=== PATIENT | female | born 1940 | race Caucasian/White ===

== ENCOUNTER → 2017-01-03 | Outpatient (CLI) | payer OTHER | LOC: BHFA 09:30 | PROVIDERS: ATTEND Internal Medicine Cardiovascular Disease | DX: E78.5 Hyperlipidemia, unspecified (principal); J44.9 Chronic obstructive pulmonary disease, unspecified ==

== ENCOUNTER → 2017-02-09 | Outpatient (CLI) | payer OTHER ==
[~2017-02-09] MED LIST: IOPAMIDOL (ISOVUE-300) 100 ML BTL IV ONE
== END ==
LOC: FIMAGING 10:31
PROVIDERS: ATTEND Family Medicine
DX: R31.9 Hematuria, unspecified (principal); R91.1 Solitary pulmonary nodule; J47.9 Bronchiectasis, uncomplicated
CPT/HCPCS: 74178; Q9967

== ENCOUNTER → 2017-02-12 | Outpatient (CLI) | payer OTHER | LOC: BMCIMAGING 10:04 | PROVIDERS: ATTEND Family Medicine | DX: M17.11 Unilateral primary osteoarthritis, right knee (principal); M25.461 Effusion, right knee ==

== ENCOUNTER → 2017-06-21 | Outpatient (CLI) | payer OTHER | LOC: FIMAGING 14:58 | PROVIDERS: ATTEND Family Medicine | DX: R91.8 Other nonspecific abnormal finding of lung field (principal) ==

== ENCOUNTER → 2017-07-24 | Outpatient (CLI) | payer OTHER | LOC: FIMAGING 08:48 | PROVIDERS: ATTEND Family Medicine | DX: Z12.31 Encounter for screening mammogram for malignant neoplasm of breast (principal); Z85.3 Personal history of malignant neoplasm of breast; Z80.3 Family history of malignant neoplasm of breast | CPT/HCPCS: G0202 ==

== ENCOUNTER 2017-08-28 09:49 | Emergency (ER) | payer OTHER ==
[2017-08-28 09:59] VITALS: O2SAT 94
[2017-08-28 10:21] LABS: PLATELET COUNT 186 10^3/uL (150-400)
[2017-08-28 10:48] LABS: INR 0.97 (0.83-1.16); PROTIME(PATIENT) 12.8 SEC (12.0-15.0)
[2017-08-28 10:56] VITALS: RESP 18
[2017-08-28] MEDS ORDERED: IOPAMIDOL (ISOVUE 370) 100 ML BTL IV ONE (10:56)
--- NOTE | 2017-08-28 10:56 | EDPHY ---
H & P Time Seen by Provider: 08/28/17 10:17 HPI/ROS: CHIEF COMPLAINT: Hemoptysis HISTORY OF PRESENT ILLNESS: 77-year-old female presents with hemoptysis. Onset of hemoptysis yesterday evening, she coughed up a small amount of bright red blood x4 last evening. She slept well last night. When she awoke this morning, she had a few episodes of hemoptysis. She has a small amount of blood on the tissue each time, no clots. No recent cough or fever. She is not short of breath. No prior history of hemoptysis. 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 Smoking Status: Former smoker Physical Exam: General Appearance: Alert, pleasant Eyes: Pupils equal and round, no conjunctival pallor or injection ENT, Mouth: Mucous membranes moist Neck: Normal inspection Respiratory: Lungs are clear to auscultation Cardiovascular: Regular rate and rhythm, no murmur Gastrointestinal: Abdomen is soft and nontender Neurological: A&O, nonfocal, normal gait Skin: Warm and dry, no rash Extremities: Nontender, no pedal edema Psychiatric: Mood and affect normal Constitutional: Initial Vital Signs Temperature (C) 36.5 C 08/28/17 09:56 Heart Rate 79 08/28/17 09:56 Respiratory Rate 20 08/28/17 09:56 Blood Pressure 117/77 08/28/17 09:56 O2 Sat (%) 94 08/28/17 09:56 O2 Delivery Mode Room Air Allergies/Adverse Reactions: Penicillins Allergy (Unknown, Verified 08/28/17 09:54) Home Medications: Medication Instructions Recorded Synthroid 01/08/10 Aspirin 81mg (*) 07/03/16 Calcium 09/22/16 Coq10 09/22/16 Garlic Extract 09/22/16 Herbals/Supplements -Info Only 09/22/16 Magnesium 09/22/16 Nexium 11/06/17 Medical Decision Making - Diagnostics EKG Interpretation: Differential diagnosis includes though it is not limited to pneumonia, pneumothorax, pulmonary embolism, aortic dissection, pericarditis, acute coronary syndrome. Imaging Results: Imaging Impressions Chest X-Ray 08/28/17 10:16 Impression: 1. Mild bronchitis. No pneumonia or mass. 2. Benign linear scar peripheral right mid lung is unchanged since at least 2011. Chest/Thorax CTA 08/28/17 10:52 Impression: 1. No pulmonary embolism. 2. Chronic interstitial lung disease and bronchiectasis, with centrilobular nodules, in the right middle lobe, left lingula, and right lower lobe. These processes have been evolving since 2014. Primary differential is DAYANA given distribution. 3. No new areas of parenchymal involvement. Findings and recommendations discussed with Dr. Jayna Myers at 1220 hours on August 28, 2017. Final report concurs with initial preliminary interpretation. ED Course/Re-evaluation: This patient presents with mild hemoptysis. Chest x-ray is unremarkable. CT pulmonary angiogram ordered because of hemoptysis and underlying lung disease, prior pulmonary nodules and history of breast cancer. CT scan results discussed with the patient. The most likely etiology for hemoptysis is underlying bronchiectasis. She has seen Dr. Kal Moncada in the office before and will follow up with him for consideration of bronchoscopy. While she was in the emergency department, she had a couple episodes of hemoptysis, consisting of a small amount of blood on tissue. Feel that she is safe and stable for discharge home. She will return to the emergency department if the hemoptysis worsens. Differential Diagnosis: Differential diagnosis includes though it is not limited to pneumonia, pneumothorax, pulmonary embolism, aortic dissection, pericarditis, acute coronary syndrome. - Data Points Laboratory Results: Laboratory Results 08/28/17 10:00 08/28/17 10:00 08/28/17 08/28/17 08/28/17 10:00 10:00 10:00 WBC RBC Hgb Hct MCV MCH MCHC RDW Plt Count MPV Neut % (Auto) Lymph % (Auto) [place] % (Auto) Eos % (Auto) Baso % (Auto) Nucleat RBC Rel Count Absolute Neuts (auto) Absolute Lymphs (auto) Absolute Monos (auto) Absolute Eos (auto) Absolute Basos (auto) Absolute Nucleated RBC Immature Gran % Immature Gran # PT 12.8 SEC SEC (12.0-15.0) INR 0.97 (0.83-1.16) APTT 32.3 SEC SEC (23.0-38.0) D-Dimer 0.51 ug/mLFEU H ug/mLFEU (0.00-0.50) Sodium 140 mEq/L mEq/L (134-144) Potassium 4.3 mEq/L mEq/L (3.5-5.2) Chloride 105 mEq/L mEq/L (97-110) Carbon Dioxide 25 mEq/l mEq/l (22-31) Anion Gap 10 mEq/L mEq/L (8-16) BUN 19 mg/dL mg/dL (7-23) Creatinine 1.0 mg/dL mg/dL (0.6-1.0) Estimated GFR 54 Glucose 98 mg/dL mg/dL (70-100) Calcium 10.4 mg/dL mg/dL (8.5-10.4) NT-Pro-B Natriuret Pep 52 pg/mL pg/mL (0-450) 08/28/17 10:00 WBC 5.32 10^3/uL 10^3/uL (3.80-9.50) RBC 5.30 10^6/uL 10^6/uL (4.18-5.33) Hgb 16.2 g/dL g/dL (12.6-16.3) Hct 47.0 % % (38.0-47.0) MCV 88.7 fL fL (81.5-99.8) MCH 30.6 pg pg (27.9-34.1) MCHC 34.5 g/dL g/dL (32.4-36.7) RDW 13.6 % % (11.5-15.2) Plt Count 186 10^3/uL 10^3/uL (150-400) MPV 9.8 fL fL (8.7-11.7) Neut % (Auto) 61.1 % % (39.3-74.2) Lymph % (Auto) 24.1 % % (15.0-45.0) [place] % (Auto) 10.3 % % (4.5-13.0) Eos % (Auto) 3.4 % % (0.6-7.6) Baso % (Auto) 0.9 % % (0.3-1.7) Nucleat RBC Rel Count 0.0 % % (0.0-0.2) Absolute Neuts (auto) 3.25 10^3/uL 10^3/uL (1.70-6.50) Absolute Lymphs (auto) 1.28 10^3/uL 10^3/uL (1.00-3.00) Absolute Monos (auto) 0.55 10^3/uL 10^3/uL (0.30-0.80) Absolute Eos (auto) 0.18 10^3/uL 10^3/uL (0.03-0.40) Absolute Basos (auto) 0.05 10^3/uL 10^3/uL (0.02-0.10) Absolute Nucleated RBC 0.00 10^3/uL 10^3/uL (0-0.01) Immature Gran % 0.2 % % (0.0-1.1) Immature Gran # 0.01 10^3/uL 10^3/uL (0.00-0.10) PT INR APTT D-Dimer Sodium Potassium Chloride Carbon Dioxide Anion Gap BUN Creatinine Estimated GFR Glucose Calcium NT-Pro-B Natriuret Pep Departure - Departure Disposition: Home, Routine, Self-Care Clinical Impression: Hemoptysis Bronchiectasis Qualifiers: Bronchiectasis type: uncomplicated Qualified Code(s): J47.9 - Bronchiectasis, uncomplicated Condition: Good Instructions: Hemoptysis (ED), Bronchiectasis (ED) Additional Instructions: Return for increasing bleeding, any concerns. Referrals: Jyoti Sales MD [Primary Care Provider] - As per Instructions Kal Moncada MD [Medical Doctor] - As per Instructions (Call to make an appointment with Dr. Moncada.)
--- NOTE | 2017-08-28 11:03 | CPEKG ---
Heart Rate: 67 RR Interval: 896 P-R Interval: 176 QRSD Interval: 88 QT Interval: 408 QTC Interval: 431 P [place]: 56 QRS [place]: -12 T Wave [place]: 11 EKG Severity - BORDERLINE ECG - EKG Impression: SINUS RHYTHM EKG Impression: PROBABLE LEFT ATRIAL ABNORMALITY Electronically Signed By: Jayna Benoit 28-Aug-2017 14:57:44
[2017-08-28 12:36] VITALS: BP 122/76; PULSE 70; TEMP 98.1
== END 2017-08-28 12:36 | disposition home or self-care (01) ==
DX: J47.9 Bronchiectasis, uncomplicated (principal); Z79.82 Long term (current) use of aspirin; Z85.3 Personal history of malignant neoplasm of breast; Z87.891 Personal history of nicotine dependence
CPT/HCPCS: 71020; 71275; 93005; 99285; Q9967

== ENCOUNTER 2017-11-26 16:30 | Observation (INO) | payer OTHER ==
--- NOTE | 2017-11-26 16:45 | CPEKG ---
Heart Rate: 70 RR Interval: 857 P-R Interval: 184 QRSD Interval: 94 QT Interval: 408 QTC Interval: 441 P [place]: 62 QRS [place]: -15 T Wave [place]: 40 EKG Severity - BORDERLINE ECG - EKG Impression: SINUS RHYTHM EKG Impression: PROBABLE LEFT ATRIAL ABNORMALITY EKG Impression: BORDERLINE LEFT AXIS DEVIATION Electronically Signed By: Maximiliano Vu 26-Nov-2017 20:50:16
[2017-11-26 17:20] LABS: PLATELET COUNT 170 10^3/uL (150-400)
--- NOTE | 2017-11-26 17:23 | EDPHY ---
H & P Stated Complaint: chest discomfort intermittent since yesterday Time Seen by Provider: 11/26/17 16:57 HPI/ROS: Chief Complaint: Chest pain HPI: 77-year-old woman with a history of hyperlipidemia presenting with intermittent chest pain since yesterday. It comes about every couple hours. Lasts about 10 15 min. Is in her central chest. Is not radiating. At worst is about a 3/10. No associated shortness of breath. No fevers or chills. No cough. No nausea or vomiting. There are no aggravating or alleviating factors. She has had a cardiac workup including stress test and catheterization in the past. No history of similar episodes. ROS: 10 point Review of Systems is negative except as noted in the HPI. PMH: Hyperlipidemia Social History: No smoking, no alcohol, no recreational drug use Family History: Father has a history of coronary disease Physical Exam: Gen: Awake, Alert, No Distress HEENT: Nose: no rhinorrhea Eyes: PERRLA, EOMI Mouth: Moist mucosa Neck: Supple, no JVD Chest: nontender, lungs clear to auscultation Heart: S1, S2 normal, no murmur Abd: Soft, non-tender, no guarding Back: no CVA tenderness, no midline tenderness Ext: no edema, non-tender Skin: no rash Neuro: CN II-XII intact, Sensation grossly intact, Strength 5/5 in bilateral upper and lower extremities - Personal History Current Tetanus/Diphtheria Vaccine: Yes - Medical/Surgical History Hx Asthma: No Hx Chronic Respiratory Disease: No Hx Diabetes: No Hx Cardiac Disease: No Hx Renal Disease: No Hx Cirrhosis: No Hx Alcoholism: No Hx HIV/AIDS: No Hx Splenectomy or Spleen Trauma: No Other PMH: high cholesterol/breast cancer - Social History Smoking Status: Former smoker Constitutional: Initial Vital Signs Temperature (C) 36.8 C 11/26/17 16:33 Heart Rate 70 11/26/17 16:33 Respiratory Rate 17 11/26/17 16:33 Blood Pressure 162/77 H 11/26/17 16:33 O2 Sat (%) 94 11/26/17 16:33 O2 Delivery Mode Room Air Allergies/Adverse Reactions: Penicillins Allergy (Unknown, Verified 11/26/17 16:32) Home Medications: Medication Instructions Recorded Synthroid 01/08/10 Aspirin 81mg (*) 07/03/16 Calcium 09/22/16 Coq10 09/22/16 Garlic Extract 09/22/16 Herbals/Supplements -Info Only 09/22/16 Magnesium 09/22/16 Nexium 08/28/17 Zetia 11/26/17 Medical Decision Making - Diagnostics EKG Interpretation: ECG time 1642 sinus rhythm with a rate of 70, borderline left axis deviation, there is ST depressions in V3 through V6 as well as leads to 3 and AVF. These are new changes from her prior ECGs in the system. ED Course/Re-evaluation: 77-year-old with history of hyperlipidemia family history for coronary disease presenting with intermittent chest pain since yesterday. Troponin is negative. She does have ST depressions in the inferior and lateral leads. I have discussed with Dr. Schultz, hospitalist. He will admit to his service for further care. - Data Points Laboratory Results: Laboratory Results 11/26/17 16:45 11/26/17 16:45 11/26/17 11/26/17 16:45 16:45 WBC 6.88 10^3/uL 10^3/uL (3.80-9.50) RBC 4.97 10^6/uL 10^6/uL (4.18-5.33) Hgb 15.1 g/dL g/dL (12.6-16.3) Hct 44.2 % % (38.0-47.0) MCV 88.9 fL fL (81.5-99.8) MCH 30.4 pg pg (27.9-34.1) MCHC 34.2 g/dL g/dL (32.4-36.7) RDW 13.8 % % (11.5-15.2) Plt Count 170 10^3/uL 10^3/uL (150-400) MPV 9.9 fL fL (8.7-11.7) Neut % (Auto) 66.9 % % (39.3-74.2) Lymph % (Auto) 20.1 % % (15.0-45.0) [place] % (Auto) 7.7 % % (4.5-13.0) Eos % (Auto) 4.2 % % (0.6-7.6) Baso % (Auto) 1.0 % % (0.3-1.7) Nucleat RBC Rel Count 0.0 % % (0.0-0.2) Absolute Neuts (auto) 4.60 10^3/uL 10^3/uL (1.70-6.50) Absolute Lymphs (auto) 1.38 10^3/uL 10^3/uL (1.00-3.00) Absolute Monos (auto) 0.53 10^3/uL 10^3/uL (0.30-0.80) Absolute Eos (auto) 0.29 10^3/uL 10^3/uL (0.03-0.40) Absolute Basos (auto) 0.07 10^3/uL 10^3/uL (0.02-0.10) Absolute Nucleated RBC 0.00 10^3/uL 10^3/uL (0-0.01) Immature Gran % 0.1 % % (0.0-1.1) Immature Gran # 0.01 10^3/uL 10^3/uL (0.00-0.10) Sodium 142 mEq/L mEq/L (135-145) Potassium 3.8 mEq/L mEq/L (3.5-5.2) Chloride 103 mEq/L mEq/L (97-110) Carbon Dioxide 27 mEq/l mEq/l (22-31) Anion Gap 12 mEq/L mEq/L (8-16) BUN 24 mg/dL H mg/dL (7-23) Creatinine 1.0 mg/dL mg/dL (0.6-1.0) Estimated GFR 54 Glucose 99 mg/dL mg/dL (70-100) Calcium 10.5 mg/dL H mg/dL (8.5-10.4) Troponin I < 0.012 ng/mL ng/mL (0.000-0.034) Departure - Departure Disposition: [facility] Inpatient Acute Clinical Impression: Chest pain Condition: Fair Referrals: Jyoti Sales MD [Primary Care Provider] - As per Instructions
[2017-11-26] MEDS ORDERED: ASPIRIN 325 MG TAB PO ONE (18:35)
[2017-11-26] MEDS ORDERED: ONDANSETRON 4 MG/2 ML VIAL IVP PRN (20:39)
[2017-11-26] MEDS ORDERED: ONDANSETRON DISINTEGRATING 4 MG TAB PO PRN (20:39)
[2017-11-26] MEDS ORDERED: ACETAMINOPHEN 325 MG TAB PO PRN (20:39)
--- NOTE | 2017-11-26 21:15 | GHP ---
[f rep st] HISTORY AND PHYSICAL DATE OF ADMISSION: 11/26/2017 HISTORY OF PRESENT ILLNESS: The patient is a 77-year-old female with a history of hyperlipidemia who presents with chest pain. It began yesterday and got worse today. She describes this as a twinge i n her chest, not necessarily that bad, however, she also comments that there is some pressure and she holds her fist over her chest such as a Valencia sign. The patient enjoys pretty good exercise tolera nce for her age including hiking. She does not tolerate altitude that well. She has had a stress te st a year or two ago which she says was negative. She is somewhat anxious about these symptoms, said she is leaving for [facility] here in 2 days. She does not have heart failure symptoms such as PND, orthopnea, or lower extremity edema. She does not have a story or setup factors for pulmonary embolism, nor is she tachycardic. REVIEW OF SYSTEMS: A complete 10-point review of systems conducted negative except as noted in the H PI. PAST MEDICAL HISTORY: 1. Obstructive sleep apnea, on CPAP. 2. Hyperlipidemia. 3. Hypothyroidism. ALLERGIES: Penicillins. HOME MEDICATIONS: Zetia, aspirin, levothyroxine. It seems like she may be statin intolerant. 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 She is a nonsmoker. She smoked very few pack -years in her past. Moderate alcohol. FAMILY HISTORY: Notable for a daughter who struggles with alcoholism. PHYSICAL EXAMINATION: PRESENTING VITAL SIGNS: Blood pressure 165/86, now 136/87, pulse 73, breathin g 18 times a minute, 92% on room air. GENERAL: No acute distress. HEENT: Sclerae anicteric. Orop harynx clear. Mucous membranes are moist. NECK: Supple without lymphadenopathy or JVD. LUNGS: Cl ear to auscultation bilaterally. HEART: S1, S2. ABDOMEN: Soft, nontender, nondistended. LOWER EX TREMITIES: Without edema. Calves nontender. SKIN: Without rash. NEUROLOGIC: Nonfocal. LABORATORY DATA: White count 7, hematocrit 44, platelets 170,000. Sodium 142, potassium 3.8, chlori de 102, bicarb 27, BUN 24, creatinine 1.0, calcium slightly elevated at 10.5. Troponin less than 0.0 12. EKG interpreted by me shows sinus at 70, with normal axis and intervals. There is [address] depress ion in leads II, III, and F, also seen in V3, V4, V5. Leads I and L look okay. Compared with a prio r EKG from several months ago, the inferior ST depressions are not that new, and lead placement sugge sts that the anterolateral ones are also not that new. I have discussed the case with Dr. Vu of the emergency department. ASSESSMENT/PLAN: A 77-year-old female with chest pain. 1. Chest pain. It is not a particularly convincing story for angina but it sounded reasonable that she could have atypical chest pain. Her EKG was described as changed although reviewing it and yoel ring with prior, it is really not a whole ton different which is reassuring. I will cycle her tropon ins, check a lipid panel, place her on a treadmill in the morning. I have considered pulmonary embol ism and feel this is unlikely in this clinical scenario. 2. Hypercalcemia. This is so mild I suspect it is secondary to mild volume depletion. We have zora mmended outpatient followup. 3. Hyperlipidemia. Check a lipid panel in the morning. 4. Prophylaxis. Pharmacologic prophylaxis is indicated if in the hospital longer than 24 hours. 5. Disposition. Observation status. /[id number]/MODL
[2017-11-26] MEDS ORDERED: MELATONIN 3 MG TAB PO PRN (23:23)
[2017-11-27] MEDS ORDERED: LEVOTHYROXINE 125 MCG TAB PO SCH (06:00)
[2017-11-27] MEDS ORDERED: ASPIRIN EC 81 MG TAB PO SCH (09:00)
[2017-11-27] MEDS ORDERED: EZETIMIBE 10 MG TAB PO SCH (09:00)
[2017-11-27] MEDS ORDERED: Herbals/Supplements -Info Only PO SCH (09:00)
[2017-11-27] MEDS ORDERED: METOPROLOL TARTRATE 25 MG TAB PO ONE (11:45)
--- NOTE | 2017-11-27 14:20 | ASMTCMCOM ---
CM Note CM Note Notes: 11/27/2017 Case Management Note Reviewed chart, dicussed in rounds. There are no case management d/c needs identified d/t pt age, friend and family support and activity levels prior to admission. There are no PT or OT evals ordered at this time. Case Management d/c poc: anticipating independent with follow up as directed. Case Management available if needs change. Date Signed: 11/27/2017 02:20 PM Electronically Signed By:Raysa Cerna RN
[2017-11-27] MEDS ORDERED: IOPAMIDOL (ISOVUE 370) 100 ML BTL IV ONE (14:53)
[2017-11-27 16:03] VITALS: BP 127/69; PULSE 64; RESP 18; TEMP 97.7; O2SAT 92
--- NOTE | 2017-11-27 16:48 | HOSPPROG ---
Hospitalist Progress Note Assessment/Plan: #Chest pain: positive treadmill; ST depression more pronounced than on priors. Awaiting Cardiac CT given no tracer for Lexiscan #CARMEN: CPAP #HLD: Zetia #Hypothyroidism: LT4 #Diet: cardiac #Disp: cont obs status for now. Will DC today if negative cardiac CT Subjective: no CP for past few hours. No edema or SOB Objective: Vital Signs Temp Pulse Resp BP Pulse Ox 36.5 C 64 18 127/69 H 92 11/27/17 16:01 11/27/17 16:01 11/27/17 16:01 11/27/17 16:01 11/27/17 16:01 11/26/17 11/27/17 11/28/17 05:59 05:59 05:59 Intake Total 700 860 Output Total 1100 2750 Balance -400 -1890 - Physical Exam Constitutional: no apparent distress Eyes: PERRL Ears, Nose, Mouth, Throat: moist mucous membranes Cardiovascular: regular rate and rhythym, No edema Respiratory: no respiratory distress Gastrointestinal: normoactive bowel sounds Genitourinary: no bladder fullness Skin: warm Musculoskeletal: full muscle strength Neurologic: AAOx3, CN II-XII Intact Psychiatric: interacting appropriately ICD10 Worksheet Patient Problems: Problems Problem Status Onset Chest pain Acute
--- NOTE | 2017-11-27 20:44 | CPR ---
[f rep st] NONINVASIVE CARDIAC PROCEDURE REPORT DATE OF PROCEDURE: 11/27/2017 PROCEDURE: Exercise treadmill test. INDICATION: The patient is a 77-year-old female who presented to the hospital complaining of a few d ays of left-sided chest pressure which was intermittent, lasting for up to 15 seconds. It did seem t o be worse with deep breaths. It was not aggravated by physical activity. Her risk factors for maria luisa nary artery disease include hyperlipidemia. She also had a family member, her father, who suffered a fatal MN at the age of 68. DESCRIPTION OF PROCEDURE: Consent was obtained, and the patient was placed on continuous telemetry. Her resting EKG revealed normal sinus rhythm with nonspecific ST-T wave changes. The patient walked on the treadmill for 6 minutes without any chest discomfort. She did have significant shortness of breath which was the reason for termination of the exercise portion of the study. She reached 100% o f her age-predicted maximum heart rate. Her oxygen saturation dropped to 84% at peak exercise. She remained in normal sinus rhythm throughout the study. She did develop [address] depression in inferior and lateral leads. Her ST changes improved, but were still present 5-6 minutes into recover y. Her blood pressure at rest was 120/80 and peaked at 180/70. It returned to baseline 6 minutes in to recovery. PLAN: Positive exercise treadmill test. A coronary CT angiogram was recommended for further evaluat ion of the patient's coronary system. /[id number]/MODL
--- NOTE | 2017-11-27 20:44 | GDS ---
[f rep st] DISCHARGE SUMMARY DISCHARGE DIAGNOSES: 1. Chest pain. 2. Obstructive sleep apnea on CPAP. 3. Hyperlipidemia. 4. Hypothyroidism. HISTORY OF PRESENT ILLNESS: A 77-year-old female with history of hyperlipidemia , intolerant to statin, and hypothyroid, who presented with chest pain. It began yesterday. It felt like a twinge in her chest and got worse today on the day of admission. She had some pressure. She does hike, but does have shortness of breath, which is not new. She has not noted increased shortness of breath over the past several months. Denies any lower extremity edema. She is anxious about these symptoms. She says she has been under a lot of stress recently. She is planning a trip to [facility] tomorrow. Denies any PND, orthopnea, or lower extremity edema. HOSPITAL COURSE BY PROBLEM: 1. Atypical chest pain: Troponins were negative. EKG showing ST depressions, which are not new. She underwent exercise treadmill test that showed a more pronounced depression without chest pain. She underwent a cardiac CT, which showed a moderate LAD lesion. I had an extensive conversation with Dr. Kavya Kingston with Cardiology, as well as patient, as far as further evaluation. At this point it is nonobstructive. Would recommend a Lexiscan to further evaluate perfusion. She does not tolerate statins and is on Zetia, as her cholesterol is uncontrolled. She is already on a baby aspirin. After a lengthy discussion, the patient has chosen to proceed with her trip to [facility] tomorrow. I recommended strict return precautions with chest pain, shortness of breath, dizziness, or lightheadedness. She will arrange for a followup nuclear study when she returns. 2. Hyperlipidemia. Zetia. Does not tolerate statin with history of rhabdomyolysis and liver dysfunction. 3. Hypothyroidism. Levothyroxine. DISPOSITION: Patient is stable for discharge. She understands the risk, as we had an extensive conversation. DISCHARGE MEDICATIONS: No new medications. FOLLOWUP: Cardiology or PCP for a cardiac stress test. Time spent on DC: 60 min discussing case with Dr Kingston. Remaining time discussing stress test, treatment of HLD and coordinating follow up. /[id number]/MODL MTDD
--- NOTE | 2017-11-28 12:04 | ASDISCHSUM ---
Discharge Information Plan Status:Home with No Needs Medically Cleared to Leave:11/26/2017 Discharge Date:11/27/2017 07:00 PM CM D/C Disposition:Home, Routine, Self-Care ADT D/C Disposition:Home, Routine, Self-Care Projected Discharge Date:11/27/2017 07:00 PM Transportation at D/C:Self Discharge Delay Reason: Follow-Up Date:11/27/2017 07:00 PM Discharge Slot: Final Diagnosis: Placement Information Patient Contact Information Contact Name:KRISTYN Relationship:Son Address:[address] City:[place] Alternate Phone: [facility]/Zip Code:[place] [address] Email: Financial Information Financial Class: Primary Plan Desc:MEDICARE OUTPATIENT Primary Plan Number:[id number] Secondary Plan Desc:JOSSELYN Secondary Plan Number:[id number] Assessment Information [facility] CM Progress Note CM Note CM Note Notes: 11/27/2017 Case Management Note Reviewed chart, dicussed in rounds. There are no case management d/c needs identified d/t pt age, friend and family support and activity levels prior to admission. There are no PT or OT evals ordered at this time. Case Management d/c poc: anticipating independent with follow up as directed. Case Management available if needs change. Date Signed: 11/27/2017 02:20 PM Electronically Signed By:Raysa Cerna RN Intervention Information Intervention Type:*LUNDBREG-Signed Date of Service:11/27/2017 09:47 AM Patient Type:Observation Staff Member:Eve Meyer Hours: Discipline: Severity: Comment:
== END 2017-11-27 19:00 | disposition home or self-care (01) ==
LOC: F2W 19:59
PROVIDERS: ADMIT Internal Medicine; ATTEND Internal Medicine
DX: R07.89 Other chest pain (principal); G47.33 Obstructive sleep apnea (adult) (pediatric); E78.5 Hyperlipidemia, unspecified; E03.9 Hypothyroidism, unspecified; E83.52 Hypercalcemia; E86.9 Volume depletion, unspecified
CPT/HCPCS: 71046; 75574; 93005; 93017; G0378; Q9967

== ENCOUNTER → 2017-12-13 | Outpatient (CLI) | payer OTHER | LOC: BHFA 13:30 | PROVIDERS: ATTEND Internal Medicine Cardiovascular Disease | DX: R07.9 Chest pain, unspecified (principal) | CPT/HCPCS: 78452; 93017; A9500; J2785 ==

== ENCOUNTER → 2018-01-17 | Outpatient (CLI) | payer OTHER | LOC: BMCIMAGING 12:08 | PROVIDERS: ATTEND Family Medicine | DX: L03.211 Cellulitis of face (principal) ==

== ENCOUNTER → 2018-03-30 | Outpatient (CLI) | payer OTHER | LOC: FIMAGING 09:33 | PROVIDERS: ATTEND Family Medicine | DX: N64.4 Mastodynia (principal); Z85.3 Personal history of malignant neoplasm of breast ==

== ENCOUNTER 2018-04-04 13:45 | Emergency (ER) | payer OTHER ==
--- NOTE | 2018-04-04 14:02 | CPEKG ---
Heart Rate: 79 RR Interval: 759 P-R Interval: 172 QRSD Interval: 86 QT Interval: 372 QTC Interval: 427 P [place]: 68 QRS [place]: -10 T Wave [place]: 39 EKG Severity - ABNORMAL ECG - EKG Impression: SINUS RHYTHM EKG Impression: LEFT ATRIAL ABNORMALITY EKG Impression: PROBABLE LEFT VENTRICULAR HYPERTROPHY Electronically Signed By: Rafa Guillaume 04-Apr-2018 14:24:53
--- NOTE | 2018-04-04 14:06 | EDPHY ---
H & P Time Seen by Provider: 04/04/18 14:04 HPI/ROS: CHIEF COMPLAINT: Left-sided chest pain HISTORY OF PRESENT ILLNESS: Patient had stress test in November at [facility] which was negative. She has a history of breast cancer diagnosed in 2004 without recurrence. At 12:45 p.m. Today she was going to an exercise class and felt some sharp pain in left side of her chest which was worse with swimming exercises. Now it is just achy in the left side of her chest. It radiated to her left arm earlier but does not now. It is definitely worse with deep breathing. If she does cough it is worse with that as well. She has a little bit of a chronic cough from bronchitis but nothing new and no hemoptysis or leg swelling. Symptoms moderate to severe at this time. Worse with deep breath. REVIEW OF SYSTEMS: Eye: no change in vision ENT: no sore throat Cardiac: HPI Pulmonary: no cough or SOB Abdomen: no vomiting, diarrhea, abdominal pain Musculoskeletal: No leg swelling Skin: no rash Neuro: no headache Constitutional: no fever : no urinary symptoms A comprehensive 10 point review of systems is otherwise negative aside from elements mentioned in the history of present illness. PAST MEDICAL HISTORY: Includes high cholesterol, breast cancer, hypothyroid, sleep apnea. Denies hypertension or diabetes. Family history negative for venous thromboembolism Social history: Nonsmoker, no recent travel or immobilization General Appearance: Alert and conversant, cooperative. Eyes: No scleral icterus. ENT, Mouth: Normal mucous membranes. Respiratory: Normal respiratory effort, breath sounds equal, lungs are clear to auscultation. Splinting. Cardiovascular: Regular rate and rhythm. Gastrointestinal: Abdomen is soft and non tender. Neurological: Alert, face symmetric, normal motor and sensory in extremities. Skin: Warm and dry, no rashes. Musculoskeletal: No peripheral edema. Psychiatric: Not agitated. Emergency Department course/MDM: Patient declined pain medication. Plan for chest x-ray troponin and D-dimer. EKG is reviewed and has some subtle ST depression inferior laterally but is unchanged from previous EKG November 26 personally reviewed. 1526: discussed results. At this point the patient's pain is severe. She still declines any narcotic or other pain medication. At this point my suspicion for pulmonary embolism or aortic dissection is at least medium to high given the severity of her symptoms , CT angio discussed and consented. 1704: Results discussed, patient declined pain medication, symptomatic treatment and she is comfortable going home. More likely to be pleurisy or muscular or inflammatory. Would be very unlikely to be ACS or HI given waxing and waning severe pleuritic chest pain, negative troponin and EKG is unchanged, recent negative stress test. Smoking Status: Former smoker Constitutional: Initial Vital Signs Temperature (C) 36.6 C 04/04/18 13:53 Heart Rate 84 04/04/18 13:53 Respiratory Rate 18 04/04/18 13:53 Blood Pressure 145/76 H 04/04/18 13:53 O2 Sat (%) 93 04/04/18 13:53 O2 Delivery Mode Room Air Allergies/Adverse Reactions: Penicillins Allergy (Unknown, Verified 11/26/17 16:32) Home Medications: Medication Instructions Recorded Levothyroxine [Synthroid 125 mcg 125 mcg PO DAILY06 01/08/10 (*)] Aspirin EC [Aspirin EC 81 mg (*)] 81 mg PO DAILY 07/03/16 Ezetimibe [Zetia 10 MG (*)] 10 mg PO DAILY 11/26/17 Herbals/Supplements -Info Only 1 ea PO DAILY 11/26/17 Medical Decision Making - Diagnostics EKG Interpretation: 12-lead EKG interpreted by me; official reading is in trace master. My interpretation is sinus rhythm with left atrial abnormality, rate 79, very slight ST depression inferior laterally which was present on November 26 on previous EKG. Imaging Results: Imaging Impressions Chest X-Ray 04/04/18 14:22 Impression: 1. No acute process. 2. Chronic airways disease and micronodules in the right midlung. Chest/Thorax CTA 04/04/18 15:34 Impression: 1. Negative examination for acute PE. 2. New small area of inferior left upper lobe endobronchial obstruction with postobstructive atelectasis. 3. Otherwise stable and persistent bilateral lung disease suggestive of chronic mycobacterial infection. Findings were communicated by telephone with Dr. ALLAN DEAN at 04/04/2018 16: 47 Imaging: Discussed imaging studies w/ tile conduit layer Radiologist Differential Diagnosis: Differential diagnosis considered for chest pain including but not limited to myocardial ischemia, aortic dissection, pericarditis, pulmonary embolus, chest wall pain, pleural inflammation and pulmonary infectious causes. - Data Points Laboratory Results: Laboratory Results 04/04/18 14:10 04/04/18 14:10 04/04/18 04/04/18 04/04/18 14:12 14:10 14:10 WBC RBC Hgb Hct MCV MCH MCHC RDW Plt Count MPV Neut % (Auto) Lymph % (Auto) [place] % (Auto) Eos % (Auto) Baso % (Auto) Nucleat RBC Rel Count Absolute Neuts (auto) Absolute Lymphs (auto) Absolute Monos (auto) Absolute Eos (auto) Absolute Basos (auto) Absolute Nucleated RBC Immature Gran % Immature Gran # D-Dimer 0.38 ug/mLFEU ug/mLFEU (0.00-0.50) Sodium 143 mEq/L mEq/L (135-145) Potassium 4.2 mEq/L mEq/L (3.3-5.0) Chloride 103 mEq/L mEq/L (97-110) Carbon Dioxide 26 mEq/l mEq/l (22-31) Anion Gap 14 mEq/L mEq/L (8-16) BUN 25 mg/dL H mg/dL (7-23) Creatinine 1.0 mg/dL mg/dL (0.6-1.0) Estimated GFR 54 Glucose 102 mg/dL H mg/dL (70-100) Calcium 9.6 mg/dL mg/dL (8.5-10.4) POC Troponin I 0.00 ng/mL ng/mL (0.00-0.08) 04/04/18 14:10 WBC 9.84 10^3/uL H 10^3/uL (3.80-9.50) RBC 4.88 10^6/uL 10^6/uL (4.18-5.33) Hgb 14.7 g/dL g/dL (12.6-16.3) Hct 44.4 % % (38.0-47.0) MCV 91.0 fL fL (81.5-99.8) MCH 30.1 pg pg (27.9-34.1) MCHC 33.1 g/dL g/dL (32.4-36.7) RDW 13.8 % % (11.5-15.2) Plt Count 179 10^3/uL 10^3/uL (150-400) MPV 10.1 fL fL (8.7-11.7) Neut % (Auto) 77.6 % H % (39.3-74.2) Lymph % (Auto) 12.1 % L % (15.0-45.0) [place] % (Auto) 7.2 % % (4.5-13.0) Eos % (Auto) 2.3 % % (0.6-7.6) Baso % (Auto) 0.6 % % (0.3-1.7) Nucleat RBC Rel Count 0.0 % % (0.0-0.2) Absolute Neuts (auto) 7.63 10^3/uL H 10^3/uL (1.70-6.50) Absolute Lymphs (auto) 1.19 10^3/uL 10^3/uL (1.00-3.00) Absolute Monos (auto) 0.71 10^3/uL 10^3/uL (0.30-0.80) Absolute Eos (auto) 0.23 10^3/uL 10^3/uL (0.03-0.40) Absolute Basos (auto) 0.06 10^3/uL 10^3/uL (0.02-0.10) Absolute Nucleated RBC 0.00 10^3/uL 10^3/uL (0-0.01) Immature Gran % 0.2 % % (0.0-1.1) Immature Gran # 0.02 10^3/uL 10^3/uL (0.00-0.10) D-Dimer Sodium Potassium Chloride Carbon Dioxide Anion Gap BUN Creatinine Estimated GFR Glucose Calcium POC Troponin I Point of Care Test Results: Chemistry 04/04/18 14:12 POC Troponin I 0.00 ng/mL ng/mL (0.00-0.08) Departure - Departure Disposition: Home, Routine, Self-Care Clinical Impression: Chest pain Qualifiers: Chest pain type: unspecified Qualified Code(s): R07.9 - Chest pain, unspecified Condition: Good Instructions: Chest Pain (ED), Pleurisy (ED) Referrals: Jyoti Sales MD [place] [place] - As per Instructions
[2018-04-04 14:28] LABS: PLATELET COUNT 179 10^3/uL (150-400)
[2018-04-04] MEDS ORDERED: IOPAMIDOL (ISOVUE 370) 100 ML BTL IV ONE (16:01)
[2018-04-04 16:10] VITALS: BP 162/85
== END 2018-04-04 17:22 | disposition home or self-care (01) ==
DX: R07.9 Chest pain, unspecified (principal); Z79.82 Long term (current) use of aspirin; Z85.3 Personal history of malignant neoplasm of breast; Z87.891 Personal history of nicotine dependence
CPT/HCPCS: 71046; 71275; 93005; 99285; Q9967; 84484-PO

== ENCOUNTER → 2018-04-12 | Outpatient (CLI) | payer OTHER | LOC: BMCIMAGING 12:30 | PROVIDERS: ATTEND Family Medicine | DX: R05 Cough (principal); R91.8 Other nonspecific abnormal finding of lung field ==

== ENCOUNTER → 2018-05-18 | Outpatient (CLI) | payer OTHER | LOC: FIMAGING 15:13 | PROVIDERS: ATTEND Family Medicine | DX: R91.8 Other nonspecific abnormal finding of lung field (principal) ==

== ENCOUNTER → 2018-08-01 | Outpatient (CLI) | payer OTHER | LOC: FIMAGING 10:10 | PROVIDERS: ATTEND Family Medicine | DX: Z12.31 Encounter for screening mammogram for malignant neoplasm of breast (principal); Z80.3 Family history of malignant neoplasm of breast ==

== ENCOUNTER → 2019-02-04 | Outpatient (CLI) | payer OTHER | LOC: BMCIMAGING 16:50 | PROVIDERS: ATTEND Family Medicine | DX: R91.1 Solitary pulmonary nodule (principal) ==